=== PATIENT | male | born 1930 | race Caucasian/White ===

== ENCOUNTER 2017-08-02 07:19 | Inpatient (IN) | payer MEDICARE ==
[2017-08-02 07:56] LABS: #Eosinphils 0.1 thou/uL (0.0-0.7); #Lymphocytes 0.5 thou/uL (1.20-3.40); #Monocytes 0.7 thou/uL (0.11-0.59); #Neutrophils 7.6 thou/uL (1.40-6.50); %Basophils 0.2 % (0.0-1.0); %Eosinophils 1.4 % (0.0-10.0); %Lymphocytes 5.7 % (21.0-51.0); %Monocytes 8.1 % (0.0-10.0); Mean Platelet Volume 7.7 fL (7.4-10.4); Red Blood Cell (RBC) Count 4.25 mill/uL (4.70-6.10); White Blood Cell (WBC) Count 8.9 thou/uL (4.8-10.8)
[2017-08-02 08:02] LABS: Prothrombin Time 13.9 SEC (12.0-14.7)
[2017-08-02 08:16] LABS: ALT (SGPT) 10 U/L (8-55); AST (SGOT) 12 U/L (5-34); Alkaline Phosphatase 112 U/L (40-150); Anion Gap 13 mmol/L (10-20); BUN (Urea Nitrogen) 37 mg/dL (8.4-25.7); Bilirubin, Total 0.6 mg/dL (0.2-1.2); Calc. Creatinine Clearance 0 mL/min (70-130); Carbon Dioxide 28 mmol/L (23-31); Chloride 97 mmol/L (98-107); Estimated GFR-MDRD 28; Globulin 3.6 g/dL (2.4-3.5); Protein, Total 6.9 g/dL (5.8-8.1)
--- NOTE | 2017-08-02 08:36 | RAD ---
TWO VIEWS LEFT FEMUR: 08/02/2017 HISTORY: The patient fell getting out of bed and how has left hip pain. FINDINGS: There is a subtle fracture involving the subcapital region of the left femoral neck, based on cortic al irregularity at the superolateral aspect of the left femoral neck and medially, with subtle lucen cies present. No additional fracture or dislocation is seen. Left total knee prosthesis is noted. Dense vascular calcifications are seen in the femoral arteries. There is a long vascular stent see n within the distal superficial femoral artery. IMPRESSION: Nondisplaced subcapital left femoral neck fracture. POS: [facility]
--- NOTE | 2017-08-02 08:44 | RAD ---
TWO VIEWS LEFT HIP: 08/02/2017 HISTORY: The patient fell getting out of bed and now has left hip pain. FINDINGS: There is a nondisplaced left subcapital left femoral neck fracture. No dislocation is seen. Dense vascular calcifications are seen within the femoral arteries. The vascular stent is partially image d in the mid and distal left superficial femoral artery. Surgical clips overly the scrotum. IMPRESSION: Nondisplaced subcapital left femoral neck fracture, which may be slightly impacted. POS: [facility]
[2017-08-02] MEDS ORDERED: CEFAZOLIN/Water 2 GM/20 ML SYRINGE ONE ×2 (08:45→10:42)
--- NOTE | 2017-08-02 08:48 | RAD ---
AP PELVIS: 08/02/2017 HISTORY: The patient fell getting out of bed, Left hip pain. FINDINGS: Degenerative changes are seen in the spine. There is a nondisplaced fracture involving the subcapit al region of the left femoral neck, better visualized on views of the left hip and left femur, also obtained on today's date. No definite additional fracture is seen, and there is no evidence of a di slocation. Dense vascular calcifications are seen in the iliac and femoral arteries. Phleboliths o verly the pelvis. IMPRESSION: Nondisplaced left femoral neck fracture. POS: [facility]
--- NOTE | 2017-08-02 08:55 | RAD ---
PORTABLE AP CHEST X-RAY: 08/02/2017 HISTORY: The patient fell out of bed this morning and has left hip pain. Left hip fracture. COMPARISON: 11/26/2016 FINDINGS: A dual-lead left subclavian cardiac pacemaker device is noted in place. There are bilateral pleural effusions with a linear area of scarring versus atelectasis at the lateral right lung base and atel ectasis present at the left lung base. The cardiac silhouette is magnified by projection but is at the upper limits of normal to borderline enlarged. Vascular calcifications are seen in the thoracic aorta. Mild increase in perihilar interstitial densities are present and asymmetrically greater on the left, some of which may be related to patient rotation. A triple-lead left subclavian cardiac pacemaker device is stable in position. No other interval change. No fracture is seen. IMPRESSION: 1. Small bilateral pleural effusions and atelectasis. 2. Probable linear scarring at the right lung base. 3. Increased perihilar interstitial densities, asymmetrically greater on the left, probably related to patient rotation and accentuation of the left hilar structures 4. Upper limits of normal to borderline cardiomegaly. POS: [facility]
[2017-08-02] MEDS ORDERED: Fentanyl 100 MCG/2 ML VIAL ONE (09:26)
--- NOTE | 2017-08-02 10:13 | HP ---
DATE OF ADMISSION: 08/02/2017 HISTORY OF PRESENT ILLNESS: An 86-year-old man with history of multiple comorbidities. T he patient is on home hospice. He ambulates usually with a walker. The patient reports trying to a mbulate from a standing position to chair. He \\\\"missed the chair\\\\" and fell onto his left side. He denied any head trauma. Immediately felt pain in his left hip. This happened approximately 2-3 hours ago. The patient was brought by ground EMS to [facility]. He arrived hemodynamically sta ble. Porter coma scale upon arrival is noted at 15. He moved all extremities and answered questio ns appropriately. Patient's and 1 adult daughter at bedside and corroborated story. PAST MEDICAL HISTORY: Significant for chronic congestive heart failure, chronic atrial fibrillation , type 2 diabetes mellitus, essential hypertension, and left upper extremity DVT. SURGICAL HISTORY: Pertinent for childhood tonsillectomy and adenoidectomy, suprapubic catheter plac ement, carotid endarterectomies, laparoscopic cholecystectomy, defibrillator implantation, bilateral total knee arthroplasties, Gabriel fundoplication 20 years ago as well as left shoulder arthroplasty . SOCIAL HISTORY: The patient is and lives at home with his and currently is in home hos [facility]. Received visit from home hospice monthly. Denies any cigarette smoking, ethanol or illicit d rug abuse. FAMILY HISTORY: Noncontributory for this patient's age. PREHOSPITALIZATION MEDICATIONS: Include atorvastatin 20 mg p.o. daily, Aricept 5 mg p.o. daily, fur osemide 40 mg p.o. daily, lisinopril 10 mg p.o. daily, metoprolol 25 mg p.o. daily, and glipizide 2. 5 mg p.o. daily. ALLERGIES: Patient has no known drug allergies. REVIEW OF SYSTEMS: Ten point review of systems essentially unremarkable except for as stated in pas t medical history and chief complaint. PHYSICAL EXAMINATION: GENERAL: This reveals 86-year-old thin appearing man who is fatigued, but appears to be in no acute distress at the time of my evaluation. VITAL SIGNS: Include blood pressure 124/55, pulse 60, respiratory rate is 18, oxygen saturation is 92% on 2 liters by nasal cannula oxygen. HEENT: Examination reveals normocephalic and atraumatic. Pupils equal, round, and reactive to ligh t and accommodation. Extraocular muscles are intact bilaterally. No sclerae icterus is present. O ral mucosa is pale and dry. He has no intraoral lesions noted. NECK: Supple. No palpable lymphadenopathy or thyromegaly present. He has no jugular venous disten tion noted. Cervical neck is nontender to palpation. CHEST: Chest wall is stable. No gross deformities or step-offs are present. HEART: Reveals irregular rate, irregular rhythm. LUNGS: Clear to auscultation bilaterally. Breathing is regular and unlabored. ABDOMEN: Soft, nontender, and nondistended. Bowel sounds in all four quadrants appear normoactive. Liver and spleen are nonpalpable below costal margin. GENITOURINARY: He has a suprapubic catheter which is connected to a leg bag returning clear patty u rine. EXTREMITIES: Reveals 2+ radial and pedal pulses bilaterally. He has trace bilateral ankle edema pr esent. He has healed bilateral knee arthroplasty scars. NEUROLOGIC: Examination reveals no focal deficits present. LABORATORY DATA AND IMAGIN. Laboratory findings today includes CBC with 8,900 white blood cells, hemoglobin 14.6, hematocrit is 45.0, and platelet count is 289,000. PTT and INR normal at 30 seconds and 1.1 respectively. Me tabolic profile: Sodium 133, potassium 5.0, chloride is 97, bicarbonate 28, BUN 37, creatinine is 2 .25, glucose 183, AST and ALT normal at 12 and 10 respectively. Alkaline phosphatase is also normal at 112. 2. Chest x-ray is unremarkable for slight cardiomegaly with increased, then perihilar vascular pramod ings. 3. No significant pleural effusion or pneumothorax is evident. 4. X-ray of the pelvis, left femur and left hip were all unremarkable for a nondisplaced impacted s ubcapital femoral fracture. IMPRESSION: 1. Status post ground level fall. 2. Nondisplaced impacted subcapital left femoral fracture. 3. Chronic kidney disease. 4. Type 2 diabetes mellitus. 5. Chronic systolic congestive heart failure. 6. Debility. PLAN: Orthopedic surgical consultation with Dr. Najera regarding the left hip fracture. The patien t will likely need surgical fixation of the subcapital femoral fracture. There is a significant ris k for operative intervention; however, not operating on this injury will commit the patient to the ed which more than likely hasten his demise. I suspect that surgical intervention could also provid e the patient with pain relief which will be in keeping with his hospice care. Above findings and p amy have been discussed with the patient and his family at bedside. They indicated understanding of all information given. The patient wishes to proceed with surgery with full knowledge of the risks to include, but not limited to myocardial infarction, postoperative respiratory failure, wound infe ction, and stroke.
[2017-08-02] MEDS ORDERED: Lidocaine 2% w/Epinephrine 1:200K 20 ML VIAL ONE (10:28)
[2017-08-02] MEDS ORDERED: Bupivacaine PF 0.5% 30 ML VIAL ONE (10:28)
--- NOTE | 2017-08-02 10:34 | CON ---
DATE OF CONSULTATION: 08/02/2017 REASON FOR CONSULTATION: Left femoral neck fracture. HISTORY OF PRESENT ILLNESS: This is an 86-year-old man who suffered a standing level fall onto his left hip and femoral neck fractures. Past medical history is very significant for hospice due to co ngestive heart failure; however, he does ambulate in the household. He is not on oxygen at this jose e. PHYSICAL EXAMINATION: GENERAL APPEARANCE: He is alert and oriented. EXTREMITIES: On exam, he has no shortening, pain with manipulation of the left hip. Skin is intact over the left hip. No palpable pulses distally. IMAGING: Radiographs show a nondisplaced femoral neck fracture. ASSESSMENT AND PLAN: We discussed options. He understands the high degree of fatality associated w ith congestive heart failure and surgery. He was given the option of bed rest and give this hip fra cture a chance to heal, become less asymptomatic over time. He refuses this. He understands the [facility] risk of and would like to proceed with surgery.
[2017-08-02] MEDS ORDERED: Ondansetron HCl/PF 4 MG/2 ML Vial IVP PRN (12:12)
[2017-08-02] MEDS ORDERED: Dextrose 5% in Water 1,000 ML IV PRN (12:19)
[2017-08-02] MEDS ORDERED: Dextrose 50% Abboject 50 ML SYRINGE SLOW IVP PRN (12:19)
--- NOTE | 2017-08-02 12:23 | OP ---
DATE OF PROCEDURE: 08/02/2017 PREOPERATIVE DIAGNOSIS: Left femoral neck fracture. POSTOPERATIVE DIAGNOSIS: Left femoral neck fracture. SURGEON: Gm Najera M.D. OUTSIDE [employer]ANT FIELD ENGINEER: None. ANESTHESIA: TIVA local. BLOOD LOSS: Less than 5 mL. SPECIMEN: None. DRAINS: None. COMPLICATIONS: None. PROCEDURE IN DETAIL: The patient was taken to the operating room where general anesthesia was induc ed. He received Ancef preoperatively. Left leg was prepped and draped in usual sterile fashion. I anesthetized the periosteum and aspirated and injected the hip capsule. I lima off construction li sophia using C-arm fluoroscopy. I then placed 3 pins percutaneously across the femoral neck fracture, these were 7.3 cannulated screws from [employer]. I had good compression across the fracture with a lo ng threaded screws. Irrigation was performed. Skin was closed with 4-0 Monocryl and Steri-Strips. There were no complications.
[2017-08-02 13:05] VITALS: BMI 23.6
[2017-08-02] MEDS: Acetaminophen 500 MG TAB PO SCH ×2 (13:35→17:55)
[2017-08-02] MEDS ORDERED: Ondansetron ODT 8 MG TAB PO PRN (13:41)
[2017-08-02] MEDS ORDERED: ACETAMINOPHEN WITH CODEINE PO PRN (13:41)
[2017-08-02] MEDS ORDERED: Hyoscyamine Sulfate SL 0.125 mg Tablet SL PRN (13:41)
[2017-08-02] MEDS ORDERED: Bisacodyl 10 MG SUPP PR PRN (13:41)
[2017-08-02] MEDS ORDERED: Morphine IR 10 MG/5 ML UDCUP PO PRN (13:41)
[2017-08-02] MEDS ORDERED: Lorazepam 1 MG TAB PO PRN (13:55)
--- NOTE | 2017-08-02 15:13 | RAD ---
LEFT HIP 2 VIEWS: Date: 08/02/17 HISTORY: Left femoral neck fracture. FINDINGS/IMPRESSION: Two spot fluoroscopic intraoperative images of the left hip demonstrate interval reduction and inter nal fixation of the fracture of the neck of the left femur since the earlier exam at 0753 hours from the same date. Three screws have been placed. POS: [facility]
[2017-08-02] MEDS: traMADol HCl 50 MG TAB PO PRN (16:32)
[2017-08-02] MEDS: HumaLOG 300 UNITS/3 ML VIAL SC PRN (17:55)
--- NOTE | 2017-08-02 18:52 | ULT ---
BILATERAL LOWER EXTREMITY VENOUS DUPLEX EXAM: 08/02/17 HISTORY: Leg swelling and pain. Real time color doppler evaluation of the right and left lower extremities were performed from groin to calf. This includes evaluation of common femoral, superficial femoral, and profunda femoral, sap henous, popliteal and trifurcation veins. Shows patent deep venous systems bilaterally. There is nor mal compressibility and augmentation. There is no evidence of DVT. IMPRESSION: No evidence of DVT of either lower extremity. POS: [facility]
[2017-08-02] MEDS: Aggrenox 200-25mg CAP PO SCH (21:09)
[2017-08-02] MEDS: Donepezil HCl 5 MG TAB PO SCH (21:09)
[2017-08-02] MEDS: Konsyl 12 gm Packet PO SCH (21:16)
[2017-08-03] MEDS: Acetaminophen 500 MG TAB PO SCH ×5 (01:22→21:12)
[2017-08-03 06:01] LABS: #Eosinphils 0.1 thou/uL (0.0-0.7); #Lymphocytes 0.5 thou/uL (1.20-3.40); #Monocytes 0.8 thou/uL (0.11-0.59); #Neutrophils 6.6 thou/uL (1.40-6.50); %Basophils 0.4 % (0.0-1.0); %Eosinophils 1.5 % (0.0-10.0); %Lymphocytes 5.8 % (21.0-51.0); %Monocytes 9.8 % (0.0-10.0); Hematocrit 40.7 % (42.0-52.0); Mean Platelet Volume 7.5 fL (7.4-10.4); Red Blood Cell (RBC) Count 3.82 mill/uL (4.70-6.10); White Blood Cell (WBC) Count 7.9 thou/uL (4.8-10.8)
[2017-08-03 06:39] LABS: Anion Gap 11 mmol/L (10-20); BUN (Urea Nitrogen) 39 mg/dL (8.4-25.7); Calc. Creatinine Clearance 26 mL/min (70-130); Calcium 8.7 mg/dL (7.8-10.44); Carbon Dioxide 31 mmol/L (23-31); Chloride 96 mmol/L (98-107); Estimated GFR-MDRD 30; Magnesium 2.1 mg/dL (1.6-2.6); Phosphorus 3.1 mg/dL (2.3-4.7)
[2017-08-03] MEDS: traMADol HCl 50 MG TAB PO PRN (08:30)
[2017-08-03] MEDS: Spironolactone 25 MG TAB PO SCH (08:31)
[2017-08-03] MEDS: Furosemide 40 MG TAB PO SCH (08:31)
[2017-08-03] MEDS: Aggrenox 200-25mg CAP PO SCH ×2 (08:32→20:29)
[2017-08-03] MEDS: Konsyl 12 gm Packet PO SCH ×2 (08:56→20:29)
[2017-08-03] MEDS: FLU VACC TS2017-18 (>65YR) 0.5 ML SYRINGE IM ONE (13:41)
[2017-08-03] MEDS: HumaLOG 300 UNITS/3 ML VIAL SC PRN (18:15)
[2017-08-03] MEDS: Donepezil HCl 5 MG TAB PO SCH (20:29)
--- NOTE | 2017-08-04 06:44 | PRG ---
DATE OF SERVICE: 08/03/2017 SUBJECTIVE: The patient is hospital day #2, postop day #1 status post ground-level fall in which he sustained a left femoral neck fracture and subsequently underwent open reduction and internal fixat ion of the same. The patient today is tolerating a diet. He is sitting in a chair beside his bed. He states his pain is controlled and he has been up once with physical therapy. OBJECTIVE: GENERAL: Patient is alert and oriented x4 and has no complaints. VITAL SIGNS: Temperature is 97.5, heart rate 60, blood pressure 112/64, respirations 12, and oxygen saturation is 95% on room air. HEENT: Unremarkable. LUNGS: Clear to auscultation bilaterally with good inspiratory and expiratory effort. HEART: Regular rate and rhythm. ABDOMEN: Soft, flat, and nontender. EXTREMITIES: Neurovascularly intact x4. His dressing is clean, dry, and intact. ASSESSMENT AND PLAN: Status post ground-level fall resulting in left hip fracture, which has subseq uently undergone surgical repair. Plan will be to continue pain control, physical and occupational therapy and have rehabilitation evaluation and discussion with the patient and his daughter. The kasey morrell states that he was unlikely to want to go to inpatient rehabilitation, but may consider outpat ient physical therapy. We will have the rehabilitation people talk to him due to his previous state of physical being, it appears that the patient would not require a long rehabilitation stay, he has already made significant progress. We will proceed in whichever direction he determines that he wo uld like to go.
[2017-08-04] MEDS: Acetaminophen 500 MG TAB PO SCH ×3 (07:10→20:23)
[2017-08-04] MEDS: Furosemide 40 MG TAB PO SCH (08:26)
[2017-08-04] MEDS: Spironolactone 25 MG TAB PO SCH (08:26)
[2017-08-04] MEDS: Konsyl 12 gm Packet PO SCH ×2 (08:33→20:27)
[2017-08-04] MEDS: Aggrenox 200-25mg CAP PO SCH ×2 (08:33→20:21)
--- NOTE | 2017-08-04 16:50 | PRG ---
DATE OF SERVICE: 08/04/2017 SUBJECTIVE: The patient is hospital day #3, postop day #2, status post ground level fall in which h e sustained a left femoral neck fracture. He has subsequently undergone open reduction and internal fixation of the same fracture. This morning, the patient states that he is tolerating a diet. His pain is controlled and has begun work with physical therapy. OBJECTIVE: VITAL SIGNS: Temperature is 97.6, heart rate 60, blood pressure 116/64, respirations 20, and oxygen saturation is 93% on room air. HEENT: Unremarkable. LUNGS: Clear to auscultation bilaterally with good inspiratory and expiratory effort. HEART: Regular rate and rhythm. ABDOMEN: Soft, flat, and nontender with hypoactive bowel sounds. EXTREMITIES: Neurovascularly intact x4. ASSESSMENT AND PLAN: 1. Status post ground level fall. 2. Left femoral neck fracture which has undergone open reduction and internal fixation repair. Plan will be to continue physical and occupational therapy and await placement. The patient had a r ehabilitation evaluation requested yesterday.
[2017-08-04] MEDS: traMADol HCl 50 MG TAB PO PRN (20:19)
[2017-08-04] MEDS: Donepezil HCl 5 MG TAB PO SCH (20:21)
[2017-08-05] MEDS: Acetaminophen 500 MG TAB PO SCH ×4 (00:42→18:47)
[2017-08-05] MEDS: HumaLOG 300 UNITS/3 ML VIAL SC PRN ×3 (00:46→18:47)
[2017-08-05 06:03] LABS: #Eosinphils 0.2 thou/uL (0.0-0.7); #Lymphocytes 0.5 thou/uL (1.20-3.40); #Monocytes 0.6 thou/uL (0.11-0.59); #Neutrophils 5.3 thou/uL (1.40-6.50); %Basophils 0.4 % (0.0-1.0); %Eosinophils 2.5 % (0.0-10.0); %Lymphocytes 7.4 % (21.0-51.0); %Monocytes 9.1 % (0.0-10.0); Hematocrit 38.4 % (42.0-52.0); Mean Platelet Volume 7.5 fL (7.4-10.4); Red Blood Cell (RBC) Count 3.63 mill/uL (4.70-6.10); White Blood Cell (WBC) Count 6.6 thou/uL (4.8-10.8)
[2017-08-05 06:26] LABS: Anion Gap 12 mmol/L (10-20); BUN (Urea Nitrogen) 36 mg/dL (8.4-25.7); Calc. Creatinine Clearance 27 mL/min (70-130); Calcium 8.5 mg/dL (7.8-10.44); Carbon Dioxide 29 mmol/L (23-31); Chloride 95 mmol/L (98-107); Estimated GFR-MDRD 32; Magnesium 2.2 mg/dL (1.6-2.6); Phosphorus 2.8 mg/dL (2.3-4.7)
[2017-08-05] MEDS: traMADol HCl 50 MG TAB PO PRN (09:55)
[2017-08-05] MEDS: Aggrenox 200-25mg CAP PO SCH ×2 (09:57→20:05)
[2017-08-05] MEDS: Furosemide 40 MG TAB PO SCH (09:58)
[2017-08-05] MEDS: Spironolactone 25 MG TAB PO SCH (09:58)
[2017-08-05] MEDS: Konsyl 12 gm Packet PO SCH ×2 (09:58→20:07)
--- NOTE | 2017-08-05 10:24 | PRG ---
DATE OF SERVICE: 08/05/2017 SUBJECTIVE: The patient is awake and alert today. He is postoperative day 3 status post percutaneo us pinning of left femoral neck fracture. He has remained hemodynamically stable and afebrile since admission. OBJECTIVE: VITAL SIGNS: Today includes blood pressure 104/59, pulse 60, respiration 20, maximum temperature in the last 24 hours is 97.7 degrees Fahrenheit, and oxygen saturation 92% on room air. HEENT: Examination reveals normocephalic and atraumatic. HEART: Reveals regular rate and rhythm, no murmurs or gallops auscultated. LUNGS: Clear to auscultation bilaterally. Breathing is regular and unlabored. ABDOMEN: Soft, nontender, and nondistended. NEUROLOGIC: Examination reveals no focal deficits present. LABORATORY DATA: Includes CBC with 6,600 white blood cells, hemoglobin and hematocrit are stable at 12.5 and 38.4 respectively. Platelet count is 227,000. Metabolic profile; sodium 131, potassium i s 4.6, chloride is 95, bicarbonate 29, BUN 36, creatinine is 1.98, which is stable, glucose is 124, magnesium 2.2, and phosphorus is 2.8. IMPRESSION: Postoperative day #3, status post percutaneous pinning left femoral neck fracture. The patient is hemodynamically stable. We will continue with physical and occupational therapy in anti cipation of inpatient rehabilitation.
[2017-08-05] MEDS: Donepezil HCl 5 MG TAB PO SCH (20:05)
[2017-08-06] MEDS: Acetaminophen 500 MG TAB PO SCH ×6 (00:45→23:47)
[2017-08-06] MEDS: HumaLOG 300 UNITS/3 ML VIAL SC PRN (06:12)
[2017-08-06] MEDS: Senokot S 8.6-50 MG TAB PO SCH ×3 (10:00→21:13)
[2017-08-06] MEDS: Furosemide 40 MG TAB PO SCH (10:00)
[2017-08-06] MEDS: Spironolactone 25 MG TAB PO SCH (10:00)
[2017-08-06] MEDS: Aggrenox 200-25mg CAP PO SCH ×2 (10:01→21:13)
[2017-08-06] MEDS: Polyethylene Glycol 3350 17 GM Packet PO SCH ×2 (10:01→10:04)
[2017-08-06] MEDS: Konsyl 12 gm Packet PO SCH ×2 (10:04→21:12)
--- NOTE | 2017-08-06 11:32 | PRG ---
DATE OF SERVICE: 08/06/2017 SUBJECTIVE: The patient is hospital day #5, status post fall in which he sustained a left femoral n quinn fracture which has subsequently undergone ORIF. Today, the patient is tolerating a diet. He alavrado s been working with physical and occupational therapy. He has no complaints. He states that arrang ements are being made for him to go to a correction facility, he is just awaiting insurance [place]. OBJECTIVE: VITAL SIGNS: Temperature is 97.4, heart rate is 60, blood pressure 129/66, respirations 16, and oxy gen saturation 96% on room air. HEENT: Unremarkable. LUNGS: Clear to auscultation with good inspiratory and expiratory effort. HEART: Regular rate and rhythm. ABDOMEN: Soft, flat, nontender with active bowel sounds. EXTREMITIES: Neurovascularly intact x4. ASSESSMENT AND PLAN: 1. Status post ground level fall. 2. Left femoral neck fracture status post open reduction and internal fixation of same. Plan will be to continue physical and occupational therapy and await placement decision. We will al so increase his bowel regimen due to the fact the patient has not had a bowel movement.
[2017-08-06] MEDS: FLU VACC TS2017-18 (>65YR) 0.5 ML SYRINGE IM ONE (14:12)
[2017-08-06] MEDS: Donepezil HCl 5 MG TAB PO SCH (21:13)
[2017-08-07] MEDS: Acetaminophen 500 MG TAB PO SCH ×2 (05:37→14:24)
[2017-08-07] MEDS: HumaLOG 300 UNITS/3 ML VIAL SC PRN (06:36)
[2017-08-07] MEDS: Senokot S 8.6-50 MG TAB PO SCH (07:52)
[2017-08-07] MEDS: Furosemide 40 MG TAB PO SCH (07:53)
[2017-08-07] MEDS: Spironolactone 25 MG TAB PO SCH (07:53)
[2017-08-07] MEDS: Aggrenox 200-25mg CAP PO SCH (07:54)
[2017-08-07] MEDS: Polyethylene Glycol 3350 17 GM Packet PO SCH (07:54)
[2017-08-07] MEDS: Konsyl 12 gm Packet PO SCH (07:54)
[2017-08-07] MEDS ORDERED: Melatonin 3 MG TAB PO PRN (10:44)
[2017-08-07 17:21] VITALS: BP 114/66; TEMP 97.6
--- NOTE | 2017-08-08 02:05 | DIS ---
DATE OF ADMISSION: 08/02/2017 DATE OF DISCHARGE: 08/07/2017 ADMISSION DIAGNOSES: 1. Status post ground level fall. 2. Nondisplaced impacted subcapital left femoral neck fracture. 3. Chronic kidney disease. 4. Type 2 diabetes mellitus. 5. Chronic systolic congestive heart failure. 6. Debility. CONSULTATIONS: Orthopedics, Dr. Najera. PROCEDURES: Percutaneous pinning of femoral neck fracture. SUMMARY: The patient is an 86-year-old man who reportedly had a ground level fall at home , was brought to the Emergency Department, evaluated and examined and found to have the above injuri es. The patient will be taken to the operating room for his above procedure. He tolerated this wel l and would then be admitted to the surgical floor. The remainder of his stay, he would be worked w ith physical and occupational therapy and would eventually [facility]. The patient will follow up with Dr. Najera in 2 to 3 weeks or sooner as needed. [facility].
== END 2017-08-07 18:23 | DRG 481 ==
LOC: ERS 07:19 → SDC 08:54 → SURG B 12:05
PROVIDERS: ADMIT Surgery; ATTEND Surgery
PROC: 0QH734Z Insertion of Internal Fixation Device into Left Upper Femur, Percutaneous Approach (ICD-10-PCS; principal; 2017-08-02)
DX: S72.012A Unspecified intracapsular fracture of left femur, initial encounter for closed fracture (principal); I13.0 Hypertensive heart and chronic kidney disease with heart failure and stage 1 through stage 4 chronic kidney disease, or unspecified chronic kidney disease; E11.22 Type 2 diabetes mellitus with diabetic chronic kidney disease; I50.22 Chronic systolic (congestive) heart failure; W19.XXXA Unspecified fall, initial encounter; N18.2 Chronic kidney disease, stage 2 (mild); N18.9 Chronic kidney disease, unspecified
CPT/HCPCS: 36415; 36416; 71010; 72170; 76001; 80048; 80053; 83735; 84100; 85025; 85610; 85730; 86850; 86900; 86901; 87077; 87086; 87186; 90471; 90682; 93005; 93970; 96374; C1713; C1769; G0008; G0390; G8978-GP-CL; G8979-GP-CJ; G8987-GO-CK; G8988-GO-CI; J3010; Q2036; S0020